=== PATIENT | female | born 1990 | race Caucasian/White ===

== ENCOUNTER 2017-02-09 21:53 | Emergency (ER) | payer OTHER, SELFPAY | END 2017-02-10 00:03 | disposition home or self-care (01) | PROVIDERS: Emergency Provider Emergency Medicine; Family Provider Emergency Medicine; Visit Provider Emergency Medicine | DX: J10.1 Influenza due to other identified influenza virus with other respiratory manifestations (principal); F17.210 Nicotine dependence, cigarettes, uncomplicated | CPT/HCPCS: 71020; 87070; 87275; 87276; 87430; 99283 ==

== ENCOUNTER 2017-02-14 19:17 | Emergency (ER) | payer OTHER, SELFPAY ==
[2017-02-14 19:31] VITALS: BP 133/74; PULSE 120; RESP 16; TEMP 36.8; O2SAT 97; BMI 25.0
[2017-02-14 20:04] LABS: Basophils # 0.1 K/mm3 (0-0.2); Basophils % 0.3 % (0.1-2.0); Eosinophils # 0.3 K/mm3 (0.0-0.4); Eosinophils % 1.1 % (0.1-12.0); Hematocrit 41.9 % (37.0-47.0); Hemoglobin 14.4 g/dL (12.2-16.2); Lymphocytes # 6.2 K/mm3 (0.7-4.5); Lymphocytes % 27.3 K/mm3 (10-50); Mean Corpuscular HGB Conc 34.2 g/dL (31.8-35.4); Mean Corpuscular Hemoglobin 28.6 pg (27.0-31.2); Mean Corpuscular Volume 83.7 fl (81-99); Mean Platelet Volume 7.5 fl (7.4-10.4); Monocytes # 0.8 K/mm3 (0.1-1.0); Monocytes % 3.6 % (1.7-9.3); Neutrophils # 15.3 K/mm3 (1.8-7.8); Neutrophils % 67.6 % (37.0-80.0); Platelet Count 353 K/mm3 (142-424); Red Blood Count 5.01 M/mm3 (4.20-5.40); Red Cell Distribution Width 12.6 % (11.5-17.5); White Blood Count 22.6 K/mm3 (4.8-10.8)
[2017-02-14 20:06] LABS: MANUAL DIFFERENTIAL MANUAL DIFFERENTIAL (MANUAL DIFF)
[2017-02-14 20:22] LABS: Alanine Aminotransferase 28 U/L (12-78); Albumin Level 3.7 gm/dL (3.4-5.0); Alkaline Phosphatase 98 U/L (46-116); Aspartate Amino Transferase 14 U/L (15-37); Bilirubin,Total 0.3 mg/dL (0.2-1.0); Blood Urea Nitrogen 6 mg/dL (7-18); Carbon Dioxide 23 mmol/L (21.0-32.0); Chloride 104 mmol/L (98-107); Creatinine Clearance Estimated 118 mg/ml (0-300); Creatinine,Serum 0.83 mg/dL (0.55-1.02); Estimated Glomerular Filt Rate > 60 ml/min (>60); GFR (African American) > 60 ML/MIN (>60); Globulin 3.7 gm/dl (1.3-3.2); Glucose 79 mg/dL (74-106); Sodium 138 mmol/L (136-145); Total Protein,Serum 7.4 gm/dL (6.4-8.2)
--- NOTE | 2017-02-14 20:37 | PC.NURSE ---
CRITICAL LAB VALUE CALLED FROM LAB. KCL= 3.0. DR RUSHING INFORMED
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
--- NOTE | 2017-02-14 21:03 | ED_ITS ---
ED Disposition Clinical Impression: Vasovagal episode Leukocytosis Qualifiers: Leukocytosis type: unspecified Qualified Code(s): D72.829 - Elevated white blood cell count, unspecified Disposition: Home, Self-Care Condition on Discharge: Good Instructions: Dizziness, Nonvertigo Additional Instructions: call pcp in am for follow up Referrals: Everardo Stover MD [Primary Care Provider] - - Critical Care Critical Care Time: No Attestation: On 02/14/17, the high probability of a clinically significant, sudden or life threatening deterioration of the following system(s) required my full and direct attention, intervention and personal management. The time I documented below is in addition to time spent performing reported procedures but includes the following listed in this critical care notation. Medical Decision Making - Medical Records Medical records reviewed: Yes: I reviewed the patient's medical records. Vital Signs: 02/14/17 19:31 Temperature 98.3 F Temperature Source Oral Pulse Rate [Brachial] 120 H Respiratory Rate 16 Blood Pressure [Right Arm] 133/74 Blood Pressure Mean [Right Arm] 93 Blood Pressure Source [Right Arm] Automatic Cuff Blood Pressure Position [Right Arm] Sitting 02 Sat by Pulse Oximetry 97 Oxygen Delivery Method Room Air - Lab Data Lab Results 02/14/17 19:50: WBC 22.6 H*, RBC 5.01, Hgb 14.4, Hct 41.9, MCV 83.7, MCH 28.6, MCHC 34.2, RDW 12.6, Plt Count 353, MPV 7.5, Neut % (Auto) 67.6, Lymph % (Auto) 27.3, [place] % (Auto) 3.6, Eos % (Auto) 1.1, Baso % (Auto) 0.3, Neut # (Auto) 15.3 H, Lymph # (Auto) 6.2 H, [place] # (Auto) 0.8, Eos # (Auto) 0.3, Baso # (Auto ) 0.1 02/14/17 19:50: Sodium 138, Potassium 3.0 L, Chloride 104, Carbon Dioxide 23, Anion Gap 14.0, BUN 6 L, Creatinine 0.83, Estimated Creat Clear 118, Estimated GFR > 60, Est GFR ( Amer) > 60, Glucose 79, Calcium 9.0, Total Bilirubin 0.3, AST 14 L, ALT 28, Alkaline Phosphatase 98, Total Protein 7.4, Albumin 3.7, Globulin 3.7 H, Albumin/Globulin Ratio 1.0 L Result diagrams: 02/14/17 19:50 02/14/17 19:50 Orders (Tests/Meds): ED MEDICATIONS Generic Name Dose Route Start Last Admin Trade Name Freq PRN Reason Stop Dose Admin Sodium Chloride 10 ml 02/14/17 19:50 Saline Flush 10ml Syringe IV 03/16/17 19:49 NEEDED PRN Maintain IV Site Discontinued Medications Generic Name Dose Route Start Last Admin Trade Name Freq PRN Reason Stop Dose Admin Ondansetron HCl 4 mg 02/14/17 20:01 02/14/17 20:02 Zofran 4mg/2ml Vial IV 02/14/17 20:02 4 mg ONCE ONE Administration Sodium Chloride 0 ml 02/14/17 19:50 02/14/17 19:59 Sod Chloride 0.9% 1000ml Bag IV 02/14/17 19:51 1,000 ml BOLUS ONE Administration ORDERS Category Date Time Status Complete Blood Count Auto Diff Stat Lab 02/14/17 19:50 Results Urinalysis and Microscopic Stat Lab 02/14/17 19:43 Ordered Urine , HCG Qual Stat Lab 02/14/17 19:43 Ordered - Juan Inquiry Pt receiving controlled substance: No Dizzy HPI - General Chief Complaint: Dizziness Stated Complaint: Poss Dehydration, has Fainted Time Seen by Provider: 02/14/17 21:00 Mode of Arrival: Ambulatory Source of Information: Patient, Medical R
[2017-02-14 21:18] VITALS: BP 134/86; PULSE 70; RESP 16; O2SAT 100
[2017-02-14 22:11] LABS: Anisocytosis 1+; Lymphocytes % 40 % (10-50); Monocytes % 1 % (2-9); Neutrophils % 59 % (42-76); Platelet Estimate Normal; Total Cells Counted 100
== END 2017-02-14 21:19 | disposition home or self-care (01) ==
PROVIDERS: Emergency Provider Emergency Medicine; Family Provider Emergency Medicine; PCP Emergency Medicine
DX: R42 Dizziness and giddiness (principal); D72.829 Elevated white blood cell count, unspecified; F17.210 Nicotine dependence, cigarettes, uncomplicated; Z88.1 Allergy status to other antibiotic agents
CPT/HCPCS: 80053; 85007; 85025; 96360; 96365; 96375; 99282; 99283; J2405

== ENCOUNTER 2017-02-24 19:09 | Emergency (ER) | payer OTHER, SELFPAY ==
[2017-02-24 19:21] VITALS: BP 150/102; PULSE 114; RESP 20; TEMP 37.1; O2SAT 97; BMI 26.6
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
[2017-02-24 20:15] LABS: Microscopic, Urine URINE MICROSCOPIC (MICROSCOPIC)
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
[2017-02-24 20:45] LABS: Appearance,Urine CLEAR (Clear); Bilirubin,Urine Negative (Negative); Blood, Urine Negative (Negative); Color,Urine YELLOW (Yellow); Glucose,Urine (UA) Negative (Negative); Ketones,Urine Negative (Negative); Leukocyte Esterase,Urine Negative (Negative); Nitrate,Urine Negative (Negative); Protein,Urine Negative (Negative); Specific Gravity, Urine <= 1.005 (1.005-1.030); Urobilinogen,Urine 0.2 EU/dl (0.2)
[2017-02-24 20:49] LABS: Amorphous Sediment,Urine Trace /lpf; Urine Pregnancy, HCG Qual. Negative (Negative)
== END 2017-02-24 21:11 | disposition left against medical advice (07) ==
PROVIDERS: Emergency Provider Emergency Medicine; Family Provider Emergency Medicine; PCP Emergency Medicine
DX: M54.2 Cervicalgia (principal); M54.6 Pain in thoracic spine; V89.2XXA Person injured in unspecified motor-vehicle accident, traffic, initial encounter; F17.210 Nicotine dependence, cigarettes, uncomplicated
CPT/HCPCS: 81001; 81025; 99282

== ENCOUNTER 2017-04-24 18:23 | Emergency (ER) | payer OTHER, SELFPAY ==
[2017-04-24 18:39] VITALS: BP 137/96; PULSE 122; RESP 20; TEMP 37.1; O2SAT 98; BMI 28.1
[2017-04-24 19:22] LABS: UTC Influenza A Antigen Negative (Negative); UTC Influenza B Antigen Negative (Negative); UTC Strep Screen (Rapid) Negative (Negative)
--- NOTE | 2017-04-24 19:25 | HMH.EDUTC ---
[facility] [place] Clinical Impression: Cold Disposition: Home, Self-Care Condition on Discharge: Good Additional Instructions: Increase fluids Rest Follow-up with primary care this week if no improvement If symptoms worsen or do not improve return or be seen in the ER Tylenol or ibuprofen as needed for pain or fever Prescriptions: Fluticasone Propionate [Flonase 50mcg nasal spray 16gm] 1 spr NS DAILY 14 Days #1 bottle Referrals: Everardo Stover MD [Primary Care Provider] - Time of Disposition: 19:27 Medical Decision Making - Juan Inquiry Pt receiving controlled substance: No Vital Signs: 04/24/17 18:39 Temperature 98.8 F Temperature Source Temporal Artery Scan Pulse Rate [Brachial] 122 H Respiratory Rate 20 Blood Pressure [Right Arm] 137/96 Blood Pressure Mean [Right Arm] 109 Blood Pressure Source [Right Arm] Automatic Cuff Blood Pressure Position [Right Arm] Sitting 02 Sat by Pulse Oximetry 98 Oxygen Delivery Method Room Air - Lab Data Lab Results 04/24/17 18:51: Influenza Type A Ag Negative, Influenza Type B Ag Negative, Strep Scn Rapid Clinic Negative Orders (Tests/Meds): ORDERS Category Date Time Status Strep Screen Confirmation Stat Micro 04/24/17 18:51 Received [facility] [place] HPI - General Chief complaint: Urgent Treatment Center Stated complaint: Sore throat Time Seen by Provider: 04/24/17 19:25 Mode of Arrival: Ambulatory Source of Information: Patient Limitations: No Limitations Description of Symptoms (Recalled from Triage Doc. by RN): FLU LIKE SYMPTOMS SINCE LAST NIGHT HEENT Symptoms (Recalled from RN notes): Yes Resp Symptoms (Recalled from RN notes): No Skin Symptoms (Recalled from RN notes): No MS Symptoms (Recalled from RN notes): No Functional Status (Recalled from RN notes): NA - Related Data Home Medications Medication Instructions Recorded Confirmed Trazodone HCl 50 mg PO DAILY 04/24/17 04/24/17 buPROPion HCl [Bupropion Xl] 150 mg PO DAILY 04/24/17 04/24/17 Previous Rx's Medication Instructions Recorded tizanidine 4 mg tablet 4 mg PO BIDP PRN 30 Days #60 tab 04/11/17 acyclovir 400 mg tablet 400 mg PO BID #10 tab 04/18/17 Fluticasone Propionate [Flonase 1 spr NS DAILY 14 Days #1 bottle 04/24/17 50mcg nasal spray 16gm] Allergies Allergy/AdvReac Type Severity Reaction Status Date / Time amoxicillin [From AUGMENTIN] Allergy Unknown NA-NAUSEA/V Verified 02/14/17 19:58 OMITING clavulanic acid Allergy Unknown NA-NAUSEA/V Verified 02/14/17 19:58 [From AUGMENTIN] OMITING - Worker's Comp Is this a Worker's Comp case?: No [facility] History I have reviewed the patient's past medical history: Yes Medical History: Denies:: Cancer, Diabetes Mellitus Type 1, Diabetes Mellitus Type 2, MRSA Amputation: No Fractures: No - Social History Smoking Status: Current every day smoker Tobacco Type: cigarettes # Packs/Day (cigarettes): 1 Alcohol Intake: never - Psychiatric History Expresses thoughts of harming self/others: None Suicide Plan Description: No Plan ROS Obtained: Yes All systems reviewed & no additional complaints - Constitutional Constitutional: Reports system reviewed and no additional complaints, except as docu, Denies chills, Denies fever(s), Denies headache(s), Denies malaise, Denies weakness - Eyes Eyes: Reports system reviewed and no additional complaints, except as docu - ENT Ears, Nose, Mouth, and Throat: Reports system reviewed and no additional complaints, except as docu - Cardiovascular Cardiovascular: Reports system reviewed and no additional complaints, except as docu - Respiratory Respiratory: Yes system reviewed and no additional complaints, except as docu - Gastrointestinal Gastrointestingal: Reports: system reviewed and no additional complaints, except as docu - Musculoskeletal Musculoskeletal: Reports system reviewed and no additional complaints, except as docu - Integumentary/Breasts Skin/
--- NOTE | 2017-04-24 19:28 | ED_ITS ---
[facility] [place] Disposition Clinical Impression: Cold Disposition: Home, Self-Care Condition on Discharge: Good Additional Instructions: Increase fluids Rest Follow-up with primary care this week if no improvement If symptoms worsen or do not improve return or be seen in the ER Tylenol or ibuprofen as needed for pain or fever Prescriptions: Fluticasone Propionate [Flonase 50mcg nasal spray 16gm] 1 spr NS DAILY 14 Days # 1 bottle Referrals: Everardo Stover MD [Primary Care Provider] - Time of Disposition: 19:27 Medical Decision Making - Juan Inquiry Pt receiving controlled substance: No Vital Signs: 04/24/17 18:39 Temperature 98.8 F Temperature Source Temporal Artery Scan Pulse Rate [Brachial] 122 H Respiratory Rate 20 Blood Pressure [Right Arm] 137/96 Blood Pressure Mean [Right Arm] 109 Blood Pressure Source [Right Arm] Automatic Cuff Blood Pressure Position [Right Arm] Sitting 02 Sat by Pulse Oximetry 98 Oxygen Delivery Method Room Air - Lab Data Lab Results 04/24/17 18:51: Influenza Type A Ag Negative, Influenza Type B Ag Negative, Strep Scn Rapid Clinic Negative Orders (Tests/Meds): ORDERS Category Date Time Status Strep Screen Confirmation Stat Micro 04/24/17 18:51 Received [facility] [place] HPI - General Chief complaint: Urgent Treatment Center Stated complaint: Sore throat Time Seen by Provider: 04/24/17 19:25 Mode of Arrival: Ambulatory Source of Information: Patient Limitations: No Limitations Description of Symptoms (Recalled from Triage Doc. by RN): FLU LIKE SYMPTOMS SINCE LAST NIGHT HEENT Symptoms (Recalled from RN notes): Yes Resp Symptoms (Recalled from RN notes): No Skin Symptoms (Recalled from RN notes): No MS Symptoms (Recalled from RN notes): No Functional Status (Recalled from RN notes): NA - Related Data Home Medications Medication Instructions Recorded Confirmed Trazodone HCl 50 mg PO DAILY 04/24/17 04/24/17 buPROPion HCl [Bupropion Xl] 150 mg PO DAILY 04/24/17 04/24/17 Previous Rx's Medication Instructions Recorded tizanidine 4 mg tablet 4 mg PO BIDP PRN 30 Days #60 tab 04/11/17 acyclovir 400 mg tablet 400 mg PO BID #10 tab 04/18/17 Fluticasone Propionate [Flonase 1 spr NS DAILY 14 Days #1 bottle 04/24/17 50mcg nasal spray 16gm] Allergies Allergy/AdvReac Type Severity Reaction Status Date / Time amoxicillin [From AUGMENTIN] Allergy Unknown NA-NAUSEA/V Verified 02/14/17 19:58 OMITING clavulanic acid Allergy Unknown NA-NAUSEA/V Verified 02/14/17 19:58 [From AUGMENTIN] OMITING - Worker's Comp Is this a Worker's Comp case?: No H History I have reviewed the patient's past medical history: Yes Medical History: Denies:: Cancer, Diabetes Mellitus Type 1, Diabetes Mellitus Type 2, MRSA Amputation: No Fractures: No - Social History Smoking Status: Current every day smoker Tobacco Type: cigarettes # Packs/Day (cigarettes): 1 Alcohol Intake: never - Psychiatric History Expresses thoughts of harming self/others: None Suicide Plan Description: No Plan ROS Obtained: Yes All systems reviewed & no additional complaints - Constitutional Constitutional: Reports system reviewed and no additional complaints, except
[2017-04-24 19:31] VITALS: BP 137/96; PULSE 122; RESP 20; TEMP 37.1; O2SAT 98
== END 2017-04-24 19:32 | disposition home or self-care (01) ==
PROVIDERS: Emergency Provider Nurse Practitioner Family; Family Provider Emergency Medicine; PCP Emergency Medicine
DX: J00 Acute nasopharyngitis [common cold] (principal); Z88.1 Allergy status to other antibiotic agents; F17.210 Nicotine dependence, cigarettes, uncomplicated
CPT/HCPCS: 87804; 87880; 99203

== ENCOUNTER → 2018-09-03 13:40 | Outpatient (CLI) | payer MEDICARE, OTHER, SELFPAY | PROVIDERS: Visit Provider Emergency Medicine | DX: R30.0 Dysuria (principal); G62.9 Polyneuropathy, unspecified | CPT/HCPCS: 87086 ==

== ENCOUNTER 2019-08-19 22:28 | Emergency (ER) | payer MEDICARE, MEDICAID, SELFPAY ==
[2019-08-19 22:39] VITALS: BP 158/107; PULSE 120; RESP 14; TEMP 36.7; O2SAT 95; BMI 21.9
--- NOTE | 2019-08-19 23:00 | XR_ITS ---
PROCEDURE: XR ELBOW LT MIN 3V CLINICAL INDICATION: c/o pain COMPARISON: No exams were available for comparison FINDINGS: No fracture or dislocation. No lytic or blastic change. There is normal mineralization. The joint spaces are well-preserved. No significant degenerative/arthritic changes. No erosive changes evident. Other findings:None. IMPRESSION: No acute findings. Dictated by: Michel Reeves MD 08/20/2019 06:53 Electronically signed by Michel Reeves MD in [place] 08/20/2019 06:53
--- NOTE | 2019-08-19 23:00 | [facility].EDMCLR ---
ED Disposition Clinical Impression: Elbow pain, left, Medical clearance for incarceration Disposition: Home, Self-Care Condition on Discharge: Good Instructions: DI for Drug Abuse and Drug Addiction Additional Instructions: see pcp for follow up Referrals: Provider,Referral, [Primary Care Provider] - - Critical Care Critical Care Time: No Attestation: On 08/19/19, the high probability of a clinically significant, sudden or life threatening deterioration of the following system(s) required my full and direct attention, intervention and personal management. The time I documented below is in addition to time spent performing reported procedures but includes the following listed in this critical care notation. Medical Decision Making - Medical Records Medical records reviewed: Yes: I reviewed the patient's medical records. - Juan Inquiry Pt receiving controlled substance: No Vital Signs: 08/19/19 22:39 Temperature 98.1 F Temperature Source Oral Pulse Rate [Right Brachial] 120 H Respiratory Rate 14 Blood Pressure [Right Arm] 158/107 H Blood Pressure Mean [Right Arm] 124 Blood Pressure Source [Right Arm] Automatic Cuff Blood Pressure Position [Right Arm] Sitting 02 Sat by Pulse Oximetry 95 Oxygen Delivery Method Room Air Orders (Tests/Meds): ORDERS Category Date Time Status XR elbow LT min 3V Stat Exams 08/19/19 23:00 Taken - Radiology Data #1 Image(s): Elbow Image Reviewed: Yes I reviewed the patient's radiology image Preliminary Findings: No Fracture Seen Medical Clearance HPI - General Chief complaint: Medical Clearance Stated complaint: Medical Clearance Time Seen by Provider: 08/19/19 23:00 Mode of Arrival: Ambulatory Source of Information: Patient, Law Enforcement Limitations: No Limitations Description of Symptoms (Recalled from ER Triage Doc. by RN): [place] BROUGHT IN FOR MEDICAL CLEARANCE. PATIENT DENIES ANY ALCOHOL OR DRUG USE. - History of Present Illness HPI Narrative: pt with c/o of lt elbow pain - no other c/o - MD complaint: medical clearance requested Onset (ago): hour(s) Reason for Medical Clearance: intoxication Place: home Alleged Intoxication: Yes Traumatic Symptoms: denies traumatic injury Associated Symptoms: denies other symptoms Treatments Prior to Arrival: none Home medications: Home Medications Medication Instructions Recorded Confirmed montelukast 10 mg tablet 10 mg PO QPM 09/03/18 03/26/19 Previous Rx's Medication Instructions Recorded nicotine 21 mg/24 hr daily 1 patch TRANSDERMA DAILY #28 each 06/04/18 transdermal patch albuterol sulfate 90 mcg/actuation 2 puff INHALATION Q6H PRN 7 Days 07/17/18 aerosol inhaler #6.7 g tizanidine 4 mg capsule 4 mg PO TID PRN #90 cap 10/02/18 trazodone 50 mg tablet 50 mg PO DAILY #90 tab 10/02/18 gabapentin 300 mg capsule 300 mg PO BID #60 cap 12/12/18 ondansetron 4 mg disintegrating 4 mg PO Q6H PRN 3 Days #12 tab 03/26/19 tablet etonogestrel 0.12 mg-ethinyl See Rx Instructions .ROUTE 04/19/19 estradiol 0.015 mg/24 hr vaginal .COMPLEX #1 unspecified ring fluticasone propionate 50 See Rx Instructions .ROUTE 06/04/19 mcg/actuation nasal .COMPLEX #16 unspecified spray,suspension Allergies/Adverse reactions: Allergies Allergy/AdvReac Type Severity Reaction Status Date / Time ciprofloxacin [From Cipro] Allergy Mild Rash Verified 03/26/19 18:41 clavulanic acid Allergy Mild NA-NAUSEA/V Verified 03/26/19 18:41 [From AUGMENTIN] OMITING TEGADERM ADHESIVE Allergy Intermediate Blisters Uncoded 03/01/19 16:43 [facility] History - Hepatitis A Screen Drug use history?: No High risk sexual behaviors?: No History of sexually transmitted infection?: No Currently employed?: No Childcare worker?: No Do you have indoor plumbing?: Yes Do you have electricity?: Yes Attestation statement:: This patient has been screened for Hepatitis A risk factors. I have reviewed the patient's past
[2019-08-19 23:50] VITALS: BP 136/89; PULSE 101; RESP 14; TEMP 36.7; O2SAT 95
== END 2019-08-19 23:58 ==
PROVIDERS: Emergency Provider Emergency Medicine
DX: M25.552 Pain in left hip (principal); F15.10 Other stimulant abuse, uncomplicated; F17.210 Nicotine dependence, cigarettes, uncomplicated; J45.909 Unspecified asthma, uncomplicated; F41.8 Other specified anxiety disorders; Z79.899 Other long term (current) drug therapy
CPT/HCPCS: 73080; 99283